=== PATIENT | male | born 1965 | race Caucasian/White ===

== ENCOUNTER 2016-11-28 08:36 | Emergency (ER) | payer BC, OTHER ==
[~2016-11-28] VITALS: Ht 152.4 cm; Wt 58.0 kg
[2016-11-28 08:40] VITALS: Ht 152.4 cm; Wt 58.0 kg
--- NOTE | 2016-11-28 09:52 | ERD ---
ER Documentation Chief Complaint Date/Time DATE: 11/28/16 TIME: 09:49 Chief Complaint possible big toes diabetic ulcers? HPI 50 y/o male, with hx of DM, ESRD on HD, presents to ER with a long standing complaint of bilateral toenail fungal infection, the patient is concerned about a possible bacterial infection. He has well established primary care and has an appointment with global regulatory affairs manager next week. No fever or chills, no open wounds, no active bleeding. ROS All systems reviewed and are negative except as per history of present illness. Medications Home Meds Active Scripts Cephalexin* (Keflex*) 500 Mg Capsule, 500 MG PO BID for 7 Days, CAP Prov:JONNY CASTANEDA MD 11/28/16 Allergies Allergies: Coded Allergies: No Known Allergy (Unverified , 11/28/16) PMhx/Soc DM HTN ESRD on HD Physical Exam Vitals Vital Signs Date Time Temp Pulse Resp B/P Pulse Ox O2 Delivery O2 Flow Rate FiO2 11/28/16 10:18 98.5 77 18 125/68 99 Room Air 11/28/16 08:40 97.8 86 18 139/67 99 Physical Exam Alert, oriented in no distress Head: Atraumatic Eyes: Normal Conjunctiva ENT: Normal External Ears, Nose and Mouth. Neck: Full range of motion..~ No meningismus. Resp: Clear to auscultation bilaterally Cardio: Regular rate and rhythm, no murmurs Abd: Soft, non tender, non distended. Normal bowel sounds Skin: Bilateral toe onychogryphosis with surrounding erythema and tenderness Procedures/MDM Bilateral Toe pain: no clinical evidence of bilateral foot ulcers, mild irritation of the skin 2/2 onychogryphosis and onychomycosis. Adequate capillary refill. Decreased pedal pulses. Recommend close monitoring and constant self foot exam due to his diabetes. No evidence of infection. Recommend f/u with global regulatory affairs manager next week and return to the Emergency department as needed. Departure Diagnosis: Primary Impression: Pain of toe Additional Impression: Onychatrophia Condition: Stable Patient Instructions: Athlete'S Foot Comments Follow up with your PCP in 2-4 days. Please return to the emergency department for worsening of symptoms JONNY CASTANEDA MD Nov 28, 2016 09:52
[2016-11-28] MEDS ORDERED: CEPH-443 PO (09:53)
[2016-11-28 10:18] VITALS: BP 125/68; PULSE 77; RESP 18; TEMP 98.5
== END 2016-11-28 10:20 | disposition home or self-care (01) ==
LOC: E/R 08:36
DX: M79.674 Pain in right toe(s) (principal); L60.2 Onychogryphosis
CPT/HCPCS: 99283

== ENCOUNTER 2017-04-06 15:32 | Emergency (ER) | END 2017-04-07 00:44 | disposition left against medical advice (07) ==

== ENCOUNTER 2017-04-08 12:41 | Emergency (ER) | END 2017-04-08 14:02 | disposition home or self-care (01) ==

== ENCOUNTER 2017-12-15 03:58 | Inpatient (IN) | END 2017-12-30 17:30 | disposition EXP | DRG 207 ==